=== PATIENT | female | born 1990 | race Caucasian/White ===

== ENCOUNTER 2018-09-22 14:58 | Emergency (ER) | payer MEDICAID ==
[~2018-09-22] VITALS: Ht 170.2 cm; Wt 69.6 kg
[2018-09-22 15:03] VITALS: Ht 170.2 cm; Wt 69.6 kg
[2018-09-22 17:15] VITALS: BP 108/72
== END 2018-09-22 17:15 | disposition home or self-care (01) ==
LOC: ED 14:58
DX: J02.9 Acute pharyngitis, unspecified (principal)